=== PATIENT | male | born 1955 | race Caucasian/White ===

== ENCOUNTER 2021-10-23 08:10 | Emergency (ER) | payer OTHER, SELFPAY ==
[2021-10-23 08:19] VITALS: BP 137/80; PULSE 109; RESP 15; TEMP 36.4; O2SAT 98; BMI 32.3
[2021-10-23 08:43] LABS: Add Urine Microscopic? NO; Charge for UA Resulting for Rev
[2021-10-23 08:50] LABS: Bilirubin Urine Neg (Negative); Blood Urine Neg (Negative); Glucose Urine UA Norm (Normal); Ketones Urine Negative (Negative); Leukocyte Esterase Urine Negative (Negative); Nitrate Urine Negative (Negative); Protein Urine Neg (Negative); Urine Appearance Clear (CLEAR); Urine Color Yellow (Yellow); Urobilinogen Urine Norm (Negative); pH Urine 7 (5-7)
--- NOTE | 2021-10-23 09:04 | XR_ITS ---
WS: [id number] XR lumbar spine 2-3V* [id number] REASON FOR EXAM: back pain FINDINGS: Mild scoliosis convex right. Normal lordosis on the lateral view. No significant vertebral body abnormality. Mild narrowing of the intervertebral disc spaces L1-S1 with anterior osteophytes. Degenerative changes in the facet joints L3-S1. 3 mm of anterolisthesis of L5 on S1. XR/XR lumbar spine 2-3V* [id number] IMPRESSION: Mild/moderate changes of degenerative spondylosis as above.
[2021-10-23 09:09] VITALS: BP 147/107; PULSE 106; RESP 16; O2SAT 99
[2021-10-23 09:20] VITALS: BP 147/107; PULSE 106; RESP 16; O2SAT 99
[2021-10-23 09:21] LABS: Basophils # 0.1 10^3/uL (0.0-0.1); Basophils % 1.3 %; Eosinophils # 0.1 10^3/uL (0.0-0.8); Eosinophils % 0.5 %; Hematocrit 43.8 % (42.0-52.0); Hemoglobin 14.4 g/dL (11.7-16.6); Lymphocytes # 4.6 10^3/uL (0.8-4.8); Lymphocytes % 48.5 %; Mean Corpuscular HGB Conc 32.9 g/dL (30.0-36.0); Mean Corpuscular Hemoglobin 25.7 pg (28.0-34.0); Mean Corpuscular Volume 78.2 fl (80-94); Mean Platelet Volume 9.6 fL (7.4-10.4); Monocytes % 10.1 %; Neutrophils # 3.74 10^3/uL (1.8-7.7); Neutrophils % 39.2 %; Nucleated Red Blood Cells % 0 %; Platelet Count 437 10^3/cmm (130-400); Red Cell Distribution Width 15.7 % (12.1-15.1); White Blood Count 9.5 10^3/uL (4.0-10.0)
[2021-10-23 09:36] VITALS: BP 147/107; PULSE 95; RESP 16; O2SAT 97
[2021-10-23 10:46] LABS: Alanine Aminotransferase 39 U/L (0-41); Albumin Level 4.5 g/dL (3.5-5.2); Alkaline Phosphatase 66 IU/L (40-130); Anion Gap 16.9 (5-19); Aspartate Amino Transferase 26 U/L (0-40); Blood Urea Nitrogen 10 mg/dL (8-23); Calcium 9.5 mg/dL (8.5-10.5); Carbon Dioxide 24 mmol/L (22-29); Chloride 100 mmol/L (98-107); Globulin 3.5 g/dL (1.3-4.6); Glomerular Filtration Rate 112.1 mL/min (90-130); Glucose 100 mg/dL (65-115); Osmolality Calculated 281 mOsm/kg (285-295); Potassium 4.9 mmol/L (3.5-5.1); Sodium 136 mmol/L (136-145); Total Bilirubin 0.8 mg/dL (0.15-1.2)
[2021-10-23] MEDS: orphenadrine 30 mg/mL Inj 2 mL 60 MG IVP (11:15)
[2021-10-23] MEDS: dexamethasone 10 mg/mL INJ IVP (11:15)
[2021-10-23] MEDS: ketorolac 30 mg/mL INJ 15 MG IVP (11:15)
[2021-10-23 11:37] VITALS: BP 142/98; PULSE 85; RESP 16; O2SAT 98
--- NOTE | 2021-10-23 14:37 | ED_ITS ---
HPI - Male Genitourinary General: Chief complaint: Urogenital-Male Stated complaint: kidney pain Time Seen by Provider: 10/23/21 08:12 Source: patient Mode of arrival: ambulatory Limitations: no limitations History of Present Illness: 66-year-old male presents emergency room complaining of lumbosacral pain on the right side just above the belt line. He states he was treated for UTI about a week and a half ago he is complaining of what he describes as kidney pain although it is lower than location of the right kidney. He does not have any radiation of pain down his leg. No difficulty with urinary retention or fecal incontinence Onset (ago): week(s) Duration: intermittent Severity: moderate Quality: aching Relieving factors: movement Exacerbating factors: none Associated symptoms: Deny discharge, dysuria, fevers/chills, hematuria, nausea, rash, swelling, urinary incontinence, urinary retention, mass or vomiting Review of Systems Const: Denies: fever(s), chills, body aches, change in appetite, fatigue or malaise ENMT: Denies: throat pain, ear or mastoid pain, nasal discharge or nasal c ongestion Card: Denies: chest pain, palpitations, irregular heart rhythm, edema, dyspnea on exertion or orthopnea Resp: Denies: dyspnea, productive cough or non-productive cough GI: Denies: abdominal pain, nausea or vomiting : Denies: flank pain, difficulty urinating, dysuria, urinary frequency, urinary urgency, urinary incontinence or hematuria Musc: Reports: back pain Skin/Breast: Denies: rash or pruritus PFS ED PFSH: Medical History (Updated 10/23/21 @ 16:30 by Erik Wallace DO) BPH (benign prostatic hyperplasia) Social History (Updated 10/23/21 @ 16:30 by Erik Wallace DO) Smoking and tobacco status: never smoked Alcohol intake: unknown Physical Exam Const: COMMON NORMALS: no acute distress GENERAL APPEARANCE: cooperative and comfortable ORIENTATION/CONSCIOUSNESS: Yes awake, Yes oriented to person, Yes oriented to place and Yes oriented to time HENMT: COMMON NORMALS: normocephalic, atraumatic and hearing grossly normal bilaterally HEAD & SCALP: normocephalic and atraumatic Neck/C-Spine: COMMON NORMALS: no JVD Resp: COMMON NORMALS: normal respiratory effort, No retractions, No use of accessory muscles and clear to auscultation bilaterally AUSCULTATION: clear to auscultation bilaterally Cardio: COMMON NORMALS: no JVD, regular rate, regular rhythm and No murmurs present (Cardio) RATE: regular rate RHYTHM: regular rhythm GI: COMMON NORMALS: Soft to palpation and No hepatosplenomegaly present AUSCULTATION: Yes normoactive bowel sounds PALPATION: Yes Soft to palpation, No Tenderness to palpation present (GI), No Guarding due to palpation present (GI) and Yes No hepatosplenomegaly present Extremity: COMMON NORMALS: normal to inspection, capillary refill normal, no clubbing, cyanosis or edema, no calf tenderness and no pedal edema OTHER: Straight leg raising is negative. Neuro: SENSORIUM/ORIENTATION: Yes oriented to person, Yes oriented to place and Yes oriented to time Skin: COMMON NORMALS: no rashes or lesions noted GENERAL SKIN EXAM: no rashes or lesions noted Course Vital Signs: Vital signs: Vital Signs Temperature 97.6 F 10/23/21 08:19 Pulse Rate 85 10/23/21 11:37 Respiratory Rate 16 10/23/21 11:37 Blood Pressure 142/98 10/23/21 11:37 Pulse Oximetry 98 10/23/21 11:37 MDM - Male Medical Decision Making UA and CBC unremarkable. Ecchymosis is actually musculoskeletal back pain. Patient did have improvement with medications given discharge home prednisone taper muscle relaxer and anti-inflammatory follow-up as needed if persists or worsens recheck. Medical Records I reviewed the patient's medical records. Lab Data I reviewed the patient's lab results. : 10/23/21 09:10 10/23/21 10:16 Radiology Impressions Lumbar Spine X-Ray 10/23/21 09:04 IMPRESSION: Mild/moderate changes of degenerative spondylosis as above. Laboratory Results WBC 9.5 10^3/uL (4.0-10.0) 10/23/21 09:10 RBC 5.60 10^6/uL (4.1-5.3) H 10/23/21 09:10 Hgb 14.4 g/dL (11.7-16.6) 10/23/21 09:10 Hct 43.8 % (42.0-52.0) 10/23/21 09:10 MCV 78.2 fl (80-94) L 10/23/21 09:10 MCH 25.7 pg (28.0-34.0) L 10/23/21 09:10 MCHC 32.9 g/dL (30.0-36.0) 10/23/21 09:10 RDW 15.7 % (12.1-15.1) H 10/23/21 09:10 Plt Count 437 10^3/cmm (130-400) H 10/23/21 09:10 MPV 9.6 fL (7.4-10.4) 10/23/21 09:10 Neut % (Auto) 39.2 % 10/23/21 09:10 Lymph % (Auto) 48.5 % 10/23/21 09:10 [place] % (Auto) 10.1 % 10/23/21 09:10 Eos % (Auto) 0.5 % 10/23/21 09:10 Baso % (Auto) 1.3 % 10/23/21 09:10 Neut # (Auto) 3.74 10^3/uL (1.8-7.7) 10/23/21 09:10 Lymph # (Auto) 4.6 10^3/uL (0.8-4.8) 10/23/21 09:10 [place] # (Auto) 1.0 10^3/uL (0.2-0.9) H 10/23/21 09:10 Eos # (Auto) 0.1 10^3/uL (0.0-0.8) 10/23/21 09:10 Baso # (Auto) 0.1 10^3/uL (0.0-0.1) 10/23/21 09:10 Nucleated RBC % (auto) 0 % 10/23/21 09:10 Nucleated RBCs # 0.0 /100WBC 10/23/21 09:10 Sodium 136 mmol/L (136-145) 10/23/21 10:16 Potassium 4.9 mmol/L (3.5-5.1) 10/23/21 10:16 Chloride 100 mmol/L (98-107) 10/23/21 10:16 Carbon Dioxide 24 mmol/L (22-29) 10/23/21 10:16 Anion Gap 16.9 (5-19) 10/23/21 10:16 BUN 10 mg/dL (8-23) 10/23/21 10:16 Creatinine 0.7 mg/dL (0.7-1.2) 10/23/21 10:16 GFR Calculation 112.1 mL/min (90-130) 10/23/21 10:16 Glucose 100 mg/dL (65-115) 10/23/21 10:16 Calculated Osmolality 281 mOsm/kg (285-295) L 10/23/21 10:16 Calcium 9.5 mg/dL (8.5-10.5) 10/23/21 10:16 Total Bilirubin 0.8 mg/dL (0.15-1.2) 10/23/21 10:16 AST 26 U/L (0-40) 10/23/21 10:16 ALT 39 U/L (0-41) 10/23/21 10:16 Alkaline Phosphatase 66 IU/L (40-130) 10/23/21 10:16 Total Protein 8.0 g/dL (6.6-8.7) 10/23/21 10:16 Albumin 4.5 g/dL (3.5-5.2) 10/23/21 10:16 Globulin 3.5 g/dL (1.3-4.6) 10/23/21 10:16 Urine Color Yellow (Yellow) 10/23/21 08:17 Urine Appearance Clear (CLEAR) 10/23/21 08:17 Urine pH 7 (5-7) 10/23/21 08:17 Ur Specific [place] 1.000 (1.005-1.030) L 10/23/21 08:17 Urine Protein Neg (Negative) 10/23/21 08:17 Urine Glucose (UA) Norm (Normal) 10/23/21 08:17 Urine Ketones Negative (Negative) 10/23/21 08:17 Urine Blood Neg (Negative) 10/23/21 08:17 Urine Nitrate Negative (Negative) 10/23/21 08:17 Urine Bilirubin Neg (Negative) 10/23/21 08:17 Urine Urobilinogen Norm mg/dL (Negative) 10/23/21 08:17 Ur Leukocyte Esterase Negative (Negative) 10/23/21 08:17 Discharge Plan Discharge Clinical Impression: Lumbar strain Prescriptions: New prednisone 20 mg tablet 20 mg PO TID Qty: 15 0RF Rx Instructions: 1 p.o. 3 times daily x3 days, 1 p.o. twice daily x2 days, 1 p.o. daily x2 days diclofenac sodium 75 mg tablet,delayed release (DR/EC) 75 mg PO Q12H PRN (Reason: pain) Qty: 20 0RF tizanidine 4 mg capsule 4 mg PO Q6H PRN (Reason: muscle spasticity) Qty: 20 0RF Rx Instructions: do not exceed 3 doses per 24 hrs Discharge Orders: Discharge ED (Routine); Ordered 10/23/21 Ordered By: Erik Wallace Discharge Diet: Usual diet Discharge Activity: Limit activity as instructed Patient Instructions: Back Pain (ED), Opioid Safety Activity Restrictions/Additional Instructions: Avoid stooping or bending avoid lifting anything greater than 10 pounds. Follow-up with your primary care doctor within the week. Coding Level of Care Code ED Science Specialist for Arleth Oswald
== END 2021-10-23 11:39 | disposition home or self-care (01) ==
PROVIDERS: Emergency Provider Family Medicine
DX: S39.012A Strain of muscle, fascia and tendon of lower back, initial encounter (principal); X58.XXXA Exposure to other specified factors, initial encounter
CPT/HCPCS: 36415; 72100; 80053; 81003; 85025; 96374; 96375; 99284; J1100; J1885; J2360

== ENCOUNTER 2022-05-12 14:58 | Emergency (ER) | payer OTHER, SELFPAY ==
[2022-05-12 15:17] VITALS: BP 143/84; PULSE 96; RESP 22; TEMP 36.8; O2SAT 100; BMI 30.4
--- NOTE | 2022-05-12 16:14 | ED_ITS ---
HPI - Fall General: Chief Complaint: Fall Stated Complaint: FALL Time Seen by Provider: 05/12/22 15:55 Source: patient Mode of arrival: ambulatory Limitations: no limitations History of Present Illness: Patient is a nice 66-year-old male who presents to ED today with complaint of right shoulder pain that began just a few hours ago after he accidentally slipped and fell on wet leaves outside. Patient is not sure how he landed on the shoulder but believes he may have fallen on his outstretched hand and jammed it . Patient denies any other injuries or complaints at this time. He did not strike his head or LOC. complaint: fall Onset (ago): hour(s) Fall from: standing Fall witnessed: no Place fall occurred: home Loss of consciousness: None Prolonged down time: no Symptoms prior to fall: none Context: tripped/slipped Location of injury - extremities: Right: shoulder Associated symptoms-after fall: Reports no associated symptoms; Denies chest pain, headache(s) or neck pain Review of Systems Eyes: Denies: change in vision or blurry vision Card: Denies: chest pain or palpitations Resp: Denies: dyspnea Musc: Reports: joint pain (R shoulder) and limited range of motion (R shoulder); Denies: neck pain, back pain, extremity pain, extremity swelling or joint swelling Neuro: Denies: headache(s), numbness in extremities, weakness in extremities or sensory changes PFS ED PFSH: Medical History BPH (benign prostatic hyperplasia) Social History Smoking and tobacco status: never smoked Alcohol intake: unknown Physical Exam Const: COMMON NORMALS: no acute distress, average body habitus, no limitations, healthy appearing, alert and well nourished HENMT: COMMON NORMALS: normocephalic and atraumatic HEAD & SCALP: normal to inspection, normocephalic and atraumatic Neck/C-Spine: COMMON NORMALS: full ROM CERVICAL SPINE: No pain with cervical ROM, No Cervical spine tenderness, No step off deformity and No Para cervical muscle tenderness Back/Pelvis: COMMON NORMALS: thoracic and lumbar spine normal to inspection, no thoracic nor lumbar tenderness and thoraco-lumbar ROM normal Extremity: COMMON NORMALS: capillary refill normal GENERAL: Yes normal exam except as noted RIGHT UPPER EXTREMITY: Yes shoulder joint Right shoulder: Yes Right shoulder joint ROM exam (significantly limited/virtually no ROM secondary to pain) and Yes Right shoulder joint neurovascular exam (normal) OTHER: can wiggle all fingers, normal real estate services coordinator strength, can flex/extend wrist against resistance, sensory normal, pulses/cap refill normal Neuro: NETO COMA SCALE: document GCS findings [place] coma scale eye opening: Spontaneous [place] coma scale verbal response: Orientated [place] coma scale motor response: Obey commands [place] coma scale total score: 15 COMMON NORMALS: moves all extremities, no focal motor deficits and no sensory deficits noted SENSORIUM/ORIENTATION: Yes alert Skin: TRAUMA: no lacerations or abrasions Course Vital Signs: Vital signs: Vital Signs Temperature 98.2 F 05/12/22 15:17 Pulse Rate 96 05/12/22 15:17 Respiratory Rate 22 H 05/12/22 15:17 Blood Pressure 143/84 05/12/22 15:17 Pulse Oximetry 100 05/12/22 15:17 Oxygen Delivery Me thod 05/12/22 15:17 MDM - Fall Medical Decision Making XR showing humeral neck fx with mild displacement. Imaging sent to Dr. Jimenez who recommends sling and follow up in office. Discharge Plan Discharge Patient Disposition: Home Clinical Impression: Closed right humeral fracture Qualifiers: Encounter type: initial encounter Humerus Location: surgical neck Fracture morphology: unspecified fracture morphology Fracture alignment: displaced Qualified Code(s): S42.211A - Unspecified displaced fracture of surgical neck of right humerus, initial encounter for closed fracture Condition: Stable Prescriptions: New hydrocodone-acetaminophen 5-325 mg tablet 1 tab PO .q4-6 PRN (Reason: pain) Qty: 20 0RF No Action prednisone 20 mg tablet 20 mg PO TID Qty: 15 0RF Rx Instructions: 1 p.o. 3 times daily x3 days, 1 p.o. twice daily x2 days, 1 p.o. daily x2 days diclofenac sodium 75 mg tablet,delayed release (DR/EC) 75 mg PO Q12H PRN (Reason: pain) Qty: 20 0RF tizanidine 4 mg capsule 4 mg PO Q6H PRN (Reason: muscle spasticity) Qty: 20 0RF Rx Instructions: do not exceed 3 doses per 24 hrs Discharge Orders: Discharge ED (Routine); Ordered 05/12/22 Ordered By: Tierra Jane Patient Instructions: Proximal Humerus Fracture (ED), Opioid Safety, Pain Management Activity Restrictions/Additional Instructions: As we discussed case management should contact you tomorrow to set you up with your follow-up orthopedic appointment. You may take your pain medications as needed for severe pain. You need to wear your sling at all times apart from showering or bathing until told otherwise by orthopedics. Coding Level of Care Code ED Bulldozer Mechanic for Arleth Fwd Exam Detailed
--- NOTE | 2022-05-12 16:17 | XRR_ITS ---
PROCEDURE INFORMATION: Exam: XR Right Shoulder Exam date and time: 05/12/2022 4:22 PM Age: 66 years old Clinical indication: Injury or trauma; Fall; Blunt trauma (contusions or hematomas); Injury details: Fell today on right shoulder; Additional info: Injury/pain TECHNIQUE: Imaging protocol: Radiologic exam of the Right shoulder. Views: 2 or more views. COMPARISON: No relevant prior studies available. FINDINGS: Bones/joints: Humeral head and neck comminuted mildly displaced fracture, CT could further evaluate this to better assess the involvement of the humeral head. Mild acromioclavicular joint osteoarthritis. Soft tissues: Normal. XR/XR shoulder RT min 2V* [id number] IMPRESSION: 1. Humeral head and neck comminuted mildly displaced fracture, CT could further evaluate this to better assess the involvement of the humeral head. 2. Mild acromioclavicular joint osteoarthritis.
[2022-05-12 17:04] VITALS: RESP 15
[2022-05-12] MEDS: morphine 4 mg/mL SDV 1 mL IM (17:04)
--- NOTE | 2022-05-13 09:52 | DCPLANNER ---
Addendum entered by Celsa Harrell 06/18/22 07:36: Patient had a follow up appointment scheduled with ortho - patient did attend appointment. Addendum entered by Celsa Harrell 05/13/22 15:28: Patient has a follow up appointment scheduled for Tuesday, May 17, 2022 at 11:[address] Jimenez at ortho. Clinic will call patient with appointment information. Original Note: truck leasing manager had message to schedule a follow up appointment for patient with ortho. truck leasing manager sent patients information to the front office staff at ortho. Patients information will be printed and reviewed. Clinic will call patient with appointment information.
== END 2022-05-12 17:37 | disposition home or self-care (01) ==
PROVIDERS: Emergency Provider Physician Assistant
DX: S42.211A Unspecified displaced fracture of surgical neck of right humerus, initial encounter for closed fracture (principal); W01.0XXA Fall on same level from slipping, tripping and stumbling without subsequent striking against object, initial encounter
CPT/HCPCS: 73030; 96372; 99283; J2270

== ENCOUNTER 2022-05-17 15:10 | Outpatient (CLI) | payer OTHER, SELFPAY | END 2022-05-17 15:11 | disposition home or self-care (01) | LOC: SPT 15:10 | PROVIDERS: Visit Provider Specialist | DX: Z46.89 Encounter for fitting and adjustment of other specified devices (principal); S42.211A Unspecified displaced fracture of surgical neck of right humerus, initial encounter for closed fracture; S42.291A Other displaced fracture of upper end of right humerus, initial encounter for closed fracture; W10.1XXA Fall (on)(from) sidewalk curb, initial encounter | CPT/HCPCS: 24530; 97760; 99203; L3670 ==

== ENCOUNTER → 2022-06-09 09:55 | Outpatient (BNVA) | payer OTHER, SELFPAY | PROVIDERS: Visit Provider Specialist | DX: S42.291D Other displaced fracture of upper end of right humerus, subsequent encounter for fracture with routine healing (principal); S42.211D Unspecified displaced fracture of surgical neck of right humerus, subsequent encounter for fracture with routine healing; X58.XXXD Exposure to other specified factors, subsequent encounter | CPT/HCPCS: 73030; 99024 ==

== ENCOUNTER → 2022-06-30 10:02 | Outpatient (BNVA) | payer OTHER, SELFPAY | PROVIDERS: Visit Provider Specialist | DX: S42.291D Other displaced fracture of upper end of right humerus, subsequent encounter for fracture with routine healing (principal); S42.211D Unspecified displaced fracture of surgical neck of right humerus, subsequent encounter for fracture with routine healing; X58.XXXD Exposure to other specified factors, subsequent encounter | CPT/HCPCS: 73030; 99024 ==

== ENCOUNTER → 2022-08-04 08:06 | Outpatient (BNVA) | payer OTHER, SELFPAY | PROVIDERS: Visit Provider Specialist | DX: S42.211D Unspecified displaced fracture of surgical neck of right humerus, subsequent encounter for fracture with routine healing (principal); S42.291D Other displaced fracture of upper end of right humerus, subsequent encounter for fracture with routine healing; X58.XXXD Exposure to other specified factors, subsequent encounter | CPT/HCPCS: 73030; 99024 ==

== ENCOUNTER 2022-08-31 10:02 | Outpatient (RCR) | payer OTHER, SELFPAY | END 2022-09-22 23:59 | disposition home or self-care (01) | LOC: SPT 10:02 | PROVIDERS: Visit Provider Specialist | DX: S42.211D Unspecified displaced fracture of surgical neck of right humerus, subsequent encounter for fracture with routine healing (principal); X58.XXXD Exposure to other specified factors, subsequent encounter | CPT/HCPCS: 97110; 97161 ==

== ENCOUNTER 2022-09-23 06:00 | Outpatient (RCR) | payer OTHER, SELFPAY | END 2022-10-04 23:59 | disposition home or self-care (01) | LOC: SPT 06:00 | PROVIDERS: Visit Provider Specialist | DX: S42.301D Unspecified fracture of shaft of humerus, right arm, subsequent encounter for fracture with routine healing (principal); X58.XXXD Exposure to other specified factors, subsequent encounter | CPT/HCPCS: 97110 ==

== ENCOUNTER → 2023-12-28 07:20 | Outpatient (BNVA) | payer OTHER, SELFPAY | PROVIDERS: PCP Family Medicine; Visit Provider Podiatrist Foot & Ankle Surgery | DX: M72.2 Plantar fascial fibromatosis (principal); Q82.8 Other specified congenital malformations of skin; M20.21 Hallux rigidus, right foot; M20.22 Hallux rigidus, left foot; M20.41 Other hammer toe(s) (acquired), right foot; M20.42 Other hammer toe(s) (acquired), left foot | CPT/HCPCS: 73630; 99204 ==

== ENCOUNTER → 2024-02-01 07:45 | Outpatient (BNVA) | payer OTHER, SELFPAY | PROVIDERS: PCP Family Medicine; Visit Provider Podiatrist Foot & Ankle Surgery | DX: M72.2 Plantar fascial fibromatosis (principal); Q82.8 Other specified congenital malformations of skin; M20.22 Hallux rigidus, left foot; M20.21 Hallux rigidus, right foot; M20.41 Other hammer toe(s) (acquired), right foot; M20.42 Other hammer toe(s) (acquired), left foot | CPT/HCPCS: 17110; 99213 ==

== ENCOUNTER → 2024-03-12 07:30 | Outpatient (BNVA) | payer OTHER, SELFPAY | PROVIDERS: PCP Family Medicine; Visit Provider Podiatrist Foot & Ankle Surgery | DX: M72.2 Plantar fascial fibromatosis (principal); Q82.8 Other specified congenital malformations of skin; M20.21 Hallux rigidus, right foot; M20.22 Hallux rigidus, left foot; M20.41 Other hammer toe(s) (acquired), right foot; M20.42 Other hammer toe(s) (acquired), left foot | CPT/HCPCS: 17110; 99213 ==

== ENCOUNTER → 2024-05-07 07:27 | Outpatient (BNVA) | payer OTHER, SELFPAY | PROVIDERS: PCP Family Medicine; Visit Provider Podiatrist Foot & Ankle Surgery | DX: M72.2 Plantar fascial fibromatosis (principal); Q82.8 Other specified congenital malformations of skin; L60.3 Nail dystrophy; M20.22 Hallux rigidus, left foot; M20.21 Hallux rigidus, right foot; M20.42 Other hammer toe(s) (acquired), left foot; M20.41 Other hammer toe(s) (acquired), right foot | CPT/HCPCS: 17110; 99213 ==

== ENCOUNTER → 2024-06-11 07:26 | Outpatient (BNVA) | payer OTHER, SELFPAY | PROVIDERS: PCP Family Medicine; Visit Provider Podiatrist Foot & Ankle Surgery | DX: Q82.8 Other specified congenital malformations of skin (principal); M72.2 Plantar fascial fibromatosis; M20.21 Hallux rigidus, right foot; M20.22 Hallux rigidus, left foot; L60.3 Nail dystrophy | CPT/HCPCS: 17110; 99213 ==

== ENCOUNTER → 2024-08-06 07:20 | Outpatient (BNVA) | payer OTHER, SELFPAY | PROVIDERS: PCP Family Medicine; Visit Provider Podiatrist Foot & Ankle Surgery | DX: Q82.8 Other specified congenital malformations of skin (principal); M72.2 Plantar fascial fibromatosis | CPT/HCPCS: 17110; 99213 ==

== ENCOUNTER → 2024-10-09 07:12 | Outpatient (BNVA) | payer OTHER, SELFPAY | PROVIDERS: PCP Family Medicine; Visit Provider Podiatrist Foot & Ankle Surgery | DX: Q82.8 Other specified congenital malformations of skin (principal); L84 Corns and callosities | CPT/HCPCS: 17110 ==

== ENCOUNTER → 2024-12-11 07:08 | Outpatient (BNVA) | payer OTHER, SELFPAY | PROVIDERS: PCP Family Medicine; Visit Provider Podiatrist Foot & Ankle Surgery | DX: Q82.8 Other specified congenital malformations of skin (principal); L84 Corns and callosities | CPT/HCPCS: 17110 ==

== ENCOUNTER → 2025-02-12 07:13 | Outpatient (BNVA) | payer OTHER, SELFPAY | PROVIDERS: PCP Family Medicine; Visit Provider Podiatrist Foot & Ankle Surgery | DX: Q82.8 Other specified congenital malformations of skin (principal); L84 Corns and callosities | CPT/HCPCS: 17110 ==

== ENCOUNTER → 2025-04-23 07:42 | Outpatient (BNVA) | payer OTHER, SELFPAY | PROVIDERS: PCP Family Medicine; Visit Provider Podiatrist Foot & Ankle Surgery | DX: Q82.8 Other specified congenital malformations of skin (principal) | CPT/HCPCS: 17110 ==